=== PATIENT | male | born 1960 | race Caucasian/White ===

== ENCOUNTER 2018-02-03 12:49 | Emergency (ER) | payer OTHER, MEDICAID ==
[~2018-02-03] VITALS: Ht 185.4 cm; Wt 88.9 kg
[~2018-02-03 12:49] MED LIST: IBUP600T27; INSLANTI SUBCUT; SIMV-8 PO
[2018-02-03 13:21] VITALS: BP 151/94
== END 2018-02-03 14:54 | disposition left against medical advice (07) ==
LOC: ER 12:49 → EDBD 12:49 → ER 14:54
DX: E11.649 Type 2 diabetes mellitus with hypoglycemia without coma (principal); E78.5 Hyperlipidemia, unspecified; I10 Essential (primary) hypertension; Z79.4 Long term (current) use of insulin; Z79.899 Other long term (current) drug therapy